=== PATIENT | male | born 1965 | race Two or more races ===

== ENCOUNTER 2021-07-06 14:17 | Inpatient (IN) | payer MEDICAID ==
[2021-07-06] VITALS (7 sets, daily range): BP systolic 92–118; BP diastolic 54–72
[~2021-07-06] VITALS: Ht 167.6 cm; Wt 73.9 kg
[2021-07-06] MEDS ORDERED: PAIN MEDICATION (14:28)
[2021-07-06] MEDS ORDERED: OCTREOTIDE ACETATE 50 MCG/1 ML ML IV STA (14:30)
[2021-07-06] MEDS ORDERED: ONDANSETRON 4 MG/2 ML VIAL IV ONE (14:30)
[2021-07-06] MEDS ORDERED: IV NORMAL SALINE 1000 ML BAG IV ONE (14:30)
[2021-07-06] MEDS: OCTREOTIDE ACETATE DRIP 500 MCG in IV NORMAL SALINE 99 ML IV STA ×2 (14:30→14:53)
[2021-07-06] MEDS ORDERED: PANTOPRAZOLE SODIUM IV 80 MG in IV DEXTROSE 5% 100 ML IV STA (14:30)
[2021-07-06] MEDS ORDERED: PANTOPRAZOLE SODIUM 40 MG VIAL ONE (14:51)
[2021-07-06] MEDS ORDERED: ONDANSETRON 4 MG/2 ML VIAL ONE (14:51)
[2021-07-06] MEDS ORDERED: OCTREOTIDE ACETATE 500 MCG/1 ML VIAL ONE (14:52)
[2021-07-06 15:03] LABS: MEAN CORPUSCULAR HEMOGLOBIN 20.3 uug (23.8-33.4); MEAN CORPUSCULAR VOLUME 69.6 fL (73.0-96.2); PLATELET COUNT (AUTO) 60 K/uL (152-348)
--- NOTE | 2021-07-06 15:10 | NUR ---
JOSE MOROCHO TALKING TO DR. MCCOY FOR GI CONSULT.
[2021-07-06 15:19] LABS: HEMATOCRIT 14.6 % (36.7-47.1)
[2021-07-06 15:21] LABS: CREATININE 2.5 mg/dL (0.6-1.3); POTASSIUM 4.2 mmol/L (3.5-5.1)
[2021-07-06 15:25] LABS: BILIRUBIN,DIRECT 0.3 mg/dL (0.0-0.2); BILIRUBIN,TOTAL 1.5 mg/dL (0.2-1.0); TOTAL PROTEIN, SERUM 4.5 g/dL (6.4-8.2)
--- NOTE | 2021-07-06 15:30 | NUR ---
blood transfusion started.
[2021-07-06 16:15] LABS: BAND % (MANUAL) 1 % (0-10); LYMPHOCYTES % (MANUAL) 13 % (20-40); MONOCYTES % (MANUAL) 6 % (2-10); NEUTROPHILS % (MANUAL) 80 % (42-75)
[2021-07-06] MEDS ORDERED: VANCOMYCIN IV 1,000 MG in IV DEXTROSE 5% 250 ML IV ONE (16:15)
--- NOTE | 2021-07-06 16:15 | NUR ---
DR. GALINDO ADMITED THE PT. NO CCU BED AVAILABLE AT THIS TIME.
[2021-07-06] MEDS ORDERED: VANCOMYCIN IV 200 ML ONE (16:33)
[2021-07-06] MEDS ORDERED: MAGNESIUM HYDROXIDE 30 ML LIQUID UDC PO PRN (17:30)
[2021-07-06] MEDS ORDERED: IV NS 1000 ML 1,000 ML IV SCH (17:30)
[2021-07-06] MEDS ORDERED: ONDANSETRON 4 MG/2 ML VIAL IV PRN (17:30)
[2021-07-06] MEDS ORDERED: Z GUARD REMEDY PASTE 57 GM TUBE TOP PRN (17:30)
--- NOTE | 2021-07-06 17:40 | NUR ---
first unit of blood completed.
--- NOTE | 2021-07-06 17:41 | NUR ---
second unit of blood started
[2021-07-06] MEDS ORDERED: OCTREOTIDE ACETATE DRIP 500 MCG in IV NORMAL SALINE 99 ML IV PRN (17:45)
--- NOTE | 2021-07-06 18:50 | NUR ---
second unit of blood completed. pt tolerated.
--- NOTE | 2021-07-06 19:14 | NUR ---
pt remained calm the whole er stay. pt lethargy improved after the blood transfusions, pt says feels better.
--- NOTE | 2021-07-06 19:30 | NUR ---
Pt. admitted to ccu room 3 , under care of Dx: GI bleed Belongs List completed
--- NOTE | 2021-07-06 19:45 | NUR ---
RECEIVED PATIENT FROM ER DX: GI BLEED PATIENT AAOX4/MAEX4,ABLE TO WALK FROM THE GURNEY TO THE BED . NO RESPIRATORY DISTRESS NOTED ON ROOM AIR . BP 92/58 HR 84/RR22/SATURATION 99 TO 100% NO ACTIVE BLEEDING NOTED . DENIES PAIN WHEN ASKED EQUATORIAL GUINEAN -ABLE TO UNDERSTAND AND SPEAKS ALBANIAN ORIENTED WITH CCU EQUIPMENT ,MONITOR AND CALL BENITEZ .
[2021-07-06] MEDS: IV NS 1000 ML 1,000 ML IV PRN (20:10)
[2021-07-06] MEDS: PANTOPRAZOLE SODIUM 40 MG VIAL IV SCH (20:11)
--- NOTE | 2021-07-06 20:30 | NUR ---
INSERTED ANOTHER HEPLOCK NO .18 TO LEFT AC ,DONE ASEPTICALLY .
--- NOTE | 2021-07-06 20:57 | NUR ---
STARTED 1 UNIT OF FFP ,V/S DONE AND CONSENT VERIFIED .
--- NOTE | 2021-07-06 21:03 | NUR ---
PATIENT VERBALIZED HIS NAUSEOUS GIVEN THE EMESES BAG AND GIVEN THE PRN ZOFRAN.
[2021-07-06] MEDS: OCTREOTIDE ACETATE DRIP 500 MCG in IV NORMAL SALINE 99 ML IV PRN (22:09)
--- NOTE | 2021-07-06 22:21 | NUR ---
COMPETED FFPS NO REACTION NOTED . PATIENT TOLERATED BLOOD .
--- NOTE | 2021-07-06 22:34 | NUR ---
PATIENT ASKED FOR THE BED BYRD AND URINAL ,PROVIDED . PATIENT VOIDED 150 ML OF YELLOWISH URINE AND HAD BM MODERATE AMT OF SOFT RED IN COLOR STOOL ABOUT 100 ML.CHANGED SOILED LINENS AND GOWN .
[2021-07-06 23:54] LABS: MEAN CORPUSCULAR VOLUME 72.7 fL (73.0-96.2)
[2021-07-07] VITALS (34 sets, daily range): BP systolic 91–137; BP diastolic 47–69
[2021-07-07 00:08] LABS: HEMATOCRIT 17.8 % (36.7-47.1)
[2021-07-07 00:09] LABS: PLATELET COUNT (AUTO) 37 K/uL (152-348)
--- NOTE | 2021-07-07 00:20 | NUR ---
CALLED ABNORMAL LABS TO [facility] SPOKED WITH JASMEET UGALDE - WITH ORDER TO GIVE 2 UNITS PRBC ,1 FFPS,1 PLATELETS .
--- NOTE | 2021-07-07 01:09 | NUR ---
STARTED 1 UNIT FO PRBC . FOLLOW BLOOD TRANSFUSION PROTOCOL .
[2021-07-07] MEDS: ACETAMINOPHEN 325 MG TABLET PO PRN ×2 (01:17→20:33)
--- NOTE | 2021-07-07 01:24 | NUR ---
GIVEN TYLENOL WITH SIPS OF WATER PATIENT COMPLAINED OF LEFT SHOULDER PAIN 8.
--- NOTE | 2021-07-07 01:30 | NUR ---
SCDS TO BILATERAL LOWER EXTREMITIES APPLIED .
--- NOTE | 2021-07-07 04:20 | NUR ---
TOLERATED PRBC COMPLETED NO BLOOD TRANSFUSION REACTION.
--- NOTE | 2021-07-07 04:36 | NUR ---
STARTED PLATELETS ,V/S WNL CONTINUE TO MONITOR V/S AND OBSERVED FOR BLOOD TRANSFUSION REACTION .
--- NOTE | 2021-07-07 05:47 | NUR ---
COMPLETED PLATELETS PATIENT TOLERATED BLOOD NO REACTION RR 16 TO 20 ROOM AIR SATURATION 98 % HR 66 BP 95/53.
--- NOTE | 2021-07-07 06:25 | NUR ---
PRBC STARTED STARTED V/S WNL CONTINUE TO MONITOR BLOOD TRANSFUSION REACTION .
[2021-07-07] MEDS ORDERED: CALCIUM GLUCONATE IV 2 GM in IV NORMAL SALINE 100 ML IV ONE (09:00)
[2021-07-07 09:07] LABS: *BILIRUBIN,URIN NEGATIVE (NEGATIVE); *BLOOD, URINE NEGATIVE (NEGATIVE); *CLARITY,URINE CLEAR (CLEAR); *COLOR,URINE YELLOW (YELLOW); *KETONES,URINE NEGATIVE (NEGATIVE); *UROBILINOGEN,URINE 0.2 E.U./dl (NORMAL); LEUKOCYTE ESTERASE ,URINE NEGATIVE (NEGATIVE); NITRITE, URINE NEGATIVE (NEGATIVE); UGLUCOSE NEGATIVE (NEGATIVE)
[2021-07-07 09:33] LABS: HEMATOCRIT 23.3 % (36.7-47.1); MEAN CORPUSCULAR HEMOGLOBIN 24.4 uug (23.8-33.4); MEAN CORPUSCULAR VOLUME 77.6 fL (73.0-96.2)
[2021-07-07 09:42] LABS: MAGNESIUM 2.1 mg/dL (1.8-2.4); PHOSPHOROUS 4.3 mg/dL (2.5-4.9); POTASSIUM 4.6 mmol/L (3.5-5.1)
[2021-07-07] MEDS: PANTOPRAZOLE SODIUM 40 MG VIAL IV SCH ×2 (10:02→20:23)
[2021-07-07] MEDS ORDERED: PANTOPRAZOLE SODIUM 40 MG VIAL ONE (10:08)
[2021-07-07 10:16] LABS: PLATELET COUNT (AUTO) 36 K/uL (152-348)
[2021-07-07] MEDS: OCTREOTIDE ACETATE DRIP 500 MCG in IV NORMAL SALINE 99 ML IV PRN ×2 (10:29→20:02)
--- NOTE | 2021-07-07 11:15 | NUR ---
Contacted Dr. Marks about patients H&H results. One unit of PRBC and Platelets ordered for patient.
[2021-07-07 11:16] LABS: EOSINOPHILS % (MANUAL) 1 % (0-8); LYMPHOCYTES % (MANUAL) 28 % (20-40); MONOCYTES % (MANUAL) 5 % (2-10); NEUTROPHILS % (MANUAL) 66 % (42-75)
--- NOTE | 2021-07-07 16:30 | NUR ---
Patient taken to Surgery. Consent signed by Patient.
[2021-07-07] MEDS ORDERED: EPINEPHRINE 1 MG/1 ML AMP ONE (17:10)
[2021-07-07] MEDS ORDERED: EPINEPHRINE 1:10,000 1 MG/10 ML DISP.SYRIN ONE (17:11)
--- NOTE | 2021-07-07 18:22 | NUR ---
Contacted Dr. Marks about patient status. Dr. Fontenot's procedure report given and notified him that Dr. Fontenot didn't have an issue with patient being ICU or [facility]. Orders received to down grade patient from ICU to [facility] by Dr. Marks.
--- NOTE | 2021-07-07 18:40 | NUR ---
Received patient from Surgery via hospital bed accompanied by 2 staff members, report received from CAROLYN Knox PACU. Patient is awake, A/Ox4, able to make needs known, denies pain at this time, on RA. IV of LFA with ongoing Sandostatin 50mcg/hr, LAC with ongoing NS @ 100mls/hr. No erythema, bleeding or infiltration noted. VS stable T 97.8, RR 20, HR 60, BP 122/56. Continent. Bed on lowest position, brakes on, siderails x2. Call light within reach. Will continue to monitor closely.
[2021-07-07 20:12] LABS: HEMATOCRIT 26.3 % (36.7-47.1); MEAN CORPUSCULAR HEMOGLOBIN 25.3 uug (23.8-33.4); MEAN CORPUSCULAR VOLUME 79.4 fL (73.0-96.2)
[2021-07-07 20:15] LABS: PLATELET COUNT (AUTO) 32 K/uL (152-348)
--- NOTE | 2021-07-07 20:19 | NUR ---
spoke to corey from the lab , blood bank tech is available at 22: 00 to release the blood
[2021-07-07] MEDS: CEFTRIAXONE 1 G in IV DEXTROSE 5% 50 ML IV SCH (20:23)
[2021-07-07] MEDS: IV NS 1000 ML 1,000 ML IV PRN (20:27)
--- NOTE | 2021-07-07 22:00 | NUR ---
blood bank is called , is still thawing
[2021-07-07 22:14] LABS: NEUTROPHILS % (MANUAL) 0 % (42-75)
[2021-07-07 23:11] LABS: HEMATOCRIT 23.8 % (36.7-47.1); MEAN CORPUSCULAR VOLUME 78.1 fL (73.0-96.2)
[2021-07-07 23:16] LABS: PLATELET COUNT (AUTO) 31 K/uL (152-348)
--- NOTE | 2021-07-07 23:46 | NUR ---
1 "u of platelet started, VSS. Will continue to monitor closely.
[2021-07-08] VITALS (12 sets, daily range): BP systolic 116–143; BP diastolic 55–69
--- NOTE | 2021-07-08 02:04 | NUR ---
Transfusion completed. No signs of allergic reaction. VSS.
--- NOTE | 2021-07-08 03:00 | NUR ---
Resting comfortably. No significant change of condition noted. Will continue to monitor.
--- NOTE | 2021-07-08 06:30 | NUR ---
patient is awake , oriented , , on room air , on sandostatin at 50 mcg , ns 100 ml , continent of urine , cotinent of bowel , tarry black stool , no fever
[2021-07-08] MEDS: IV NS 1000 ML 1,000 ML IV PRN ×2 (06:35→18:22)
[2021-07-08] MEDS: OCTREOTIDE ACETATE DRIP 500 MCG in IV NORMAL SALINE 99 ML IV PRN ×2 (07:07→18:22)
[2021-07-08 07:31] LABS: HEMATOCRIT 24.3 % (36.7-47.1); MEAN CORPUSCULAR HEMOGLOBIN 25.1 uug (23.8-33.4)
[2021-07-08 07:45] LABS: CREATININE 1.8 mg/dL (0.6-1.3); POTASSIUM 3.8 mmol/L (3.5-5.1)
[2021-07-08 07:51] LABS: BILIRUBIN,TOTAL 3.1 mg/dL (0.2-1.0); TOTAL PROTEIN, SERUM 4.8 g/dL (6.4-8.2)
[2021-07-08 08:00] LABS: PLATELET COUNT (AUTO) 39 K/uL (152-348)
[2021-07-08] MEDS: PANTOPRAZOLE SODIUM 40 MG VIAL IV SCH ×2 (08:48→20:24)
[2021-07-08 09:41] LABS: EOSINOPHILS % (MANUAL) 3 % (0-8); LYMPHOCYTES % (MANUAL) 29 % (20-40); MONOCYTES % (MANUAL) 10 % (2-10); MYELOCYTES % 1 % (0-0); NEUTROPHILS % (MANUAL) 57 % (42-75)
[2021-07-08 09:50] LABS: HEMATOCRIT 24.1 % (36.7-47.1); MEAN CORPUSCULAR HEMOGLOBIN 25.1 uug (23.8-33.4)
[2021-07-08 10:34] LABS: PLATELET COUNT (AUTO) 34 K/uL (152-348)
--- NOTE | 2021-07-08 11:10 | NUR ---
Reported critical results of platelets to Dr. Marks. No new orders at this time. Will wait for follow up labs.
[2021-07-08 11:57] LABS: *BILIRUBIN,URIN NEGATIVE (NEGATIVE); *BLOOD, URINE NEGATIVE (NEGATIVE); *CLARITY,URINE CLEAR (CLEAR); *COLOR,URINE YELLOW (YELLOW); *KETONES,URINE NEGATIVE (NEGATIVE); *UROBILINOGEN,URINE 0.2 E.U./dl (NORMAL); LEUKOCYTE ESTERASE ,URINE NEGATIVE (NEGATIVE); NITRITE, URINE NEGATIVE (NEGATIVE); PH,URINE 5.5 (5.0-8.0); UGLUCOSE TRACE (NEGATIVE)
[2021-07-08 12:07] LABS: *CREATININE,URINE 84.9 mg/dL (30-125); *URINE TOTAL PROTEIN RANDOM 16.8 mg/dL (<150/24HR)
[2021-07-08 12:13] LABS: BACTERIA,URINE NONE SEEN /HPF (NONE SEEN); SQUAMOUS EPITHELIAL CELL,UR NONE SEEN /HPF (NONE SEEN)
[2021-07-08 12:14] LABS: RBC,URINE NONE SEEN /HPF (0-3); WBC,URINE NONE SEEN /HPF (0-3)
--- NOTE | 2021-07-08 19:30 | NUR ---
ROUNDS MADE PATIENT IN BED AAOX4/MAEX4,NO RESPIRATORY DISTRESS IVF IN PROGRESS PATIENT ON SANDOSTATIN DRIP AND NORMAL SALINE DRIP INFUSING VIA THE LEFT AC NO 18.CALL LIGHT PLACED WITH IN REACH ADVISED TO CALL FOR HELP URINAL PLACED WITH IN REACH .
--- NOTE | 2021-07-08 20:24 | NUR ---
PROTONIX 40 IVP SEE EMAR .PATIENT IN BED AAOX4/MAEX4 .NO RESPIRATORY DISTRESS NOTED ON ROOM AIR . NO ACTIVE BLEEDING .
[2021-07-08] MEDS: CEFTRIAXONE 1 G in IV DEXTROSE 5% 50 ML IV SCH (20:25)
--- NOTE | 2021-07-08 20:25 | NUR ---
ROCEPHIN ANTIBIOTICS IVPB SEE MAR .
[2021-07-09 00:11] VITALS: BP 154/71
[2021-07-09] MEDS: OCTREOTIDE ACETATE DRIP 500 MCG in IV NORMAL SALINE 99 ML IV PRN (04:13)
[2021-07-09] MEDS: IV NS 1000 ML 1,000 ML IV PRN (04:19)
[2021-07-09 04:33] VITALS: BP 145/66
[2021-07-09 07:46] VITALS: BP 132/63
[2021-07-09 08:27] LABS: HEMATOCRIT 23.5 % (36.7-47.1); MEAN CORPUSCULAR HEMOGLOBIN 25.1 uug (23.8-33.4); MEAN CORPUSCULAR VOLUME 77.5 fL (73.0-96.2)
[2021-07-09 08:49] LABS: BILIRUBIN,TOTAL 2.3 mg/dL (0.2-1.0); CREATININE 1.6 mg/dL (0.6-1.3); MAGNESIUM 1.9 mg/dL (1.8-2.4); PHOSPHOROUS 3.4 mg/dL (2.5-4.9); POTASSIUM 3.5 mmol/L (3.5-5.1); TOTAL PROTEIN, SERUM 4.8 g/dL (6.4-8.2)
[2021-07-09] MEDS: PANTOPRAZOLE SODIUM 40 MG VIAL IV SCH (08:57)
[2021-07-09 09:13] LABS: PLATELET COUNT (AUTO) 34 K/uL (152-348)
[2021-07-09 10:56] LABS: EOSINOPHILS % (MANUAL) 8 % (0-8); LYMPHOCYTES % (MANUAL) 43 % (20-40); MONOCYTES % (MANUAL) 2 % (2-10); NEUTROPHILS % (MANUAL) 47 % (42-75)
[2021-07-09] MEDS ORDERED: PANT40TA2 PO (12:42)
[2021-07-09] MEDS ORDERED: PROP10TA10 PO (12:42)
[2021-07-09] MEDS ORDERED: INFLUENZA VACCINE 2021-2022 0.5 ML DISP.SYRIN IM ONE (13:30)
[2021-07-09 13:49] VITALS: BP 122/71
[2021-07-09] MEDS ORDERED: LIDOCAINE-MPF 2% 5 ML VIAL IJ ONE (14:49)
[2021-07-09] MEDS ORDERED: ETOMIDATE 20 MG/10 ML VIAL IV ONE (14:49)
--- NOTE | 2021-07-09 14:50 | NUR ---
Patient was given discharge instructions, IV's removed, ID bands cut off and patient discharged facility with . Safety instructions given to patient and bleeding precautions.
[2021-07-10 11:06] LABS: A/G RATIO 1.2 (0.7-1.7); ALBUMIN 2.4 g/dL (2.9-4.4); ALPHA-1-GLOBULIN 0.2 g/dL (0.0-0.4); ALPHA-2-GLOBULIN 0.3 g/dL (0.4-1.0); BETA GLOBULIN 0.7 g/dL (0.7-1.3); GAMMA GLOBULIN 0.7 g/dL (0.4-1.8); M-SPIKE Not Observed g/dL (Not Observed)
== END 2021-07-09 14:50 | disposition home or self-care (01) | DRG 280 ==
LOC: ER 14:17 → CCU 19:10 → TELE-TD3 07-07 18:49 → TELE3 07-08 20:41
PROVIDERS: ADMIT Internal Medicine; ATTEND Internal Medicine
PROC: 30233K1 Transfusion of Nonautologous Frozen Plasma into Peripheral Vein, Percutaneous Approach (ICD-10-PCS; principal; 2021-07-06)
PROC: 30233N1 Transfusion of Nonautologous Red Blood Cells into Peripheral Vein, Percutaneous Approach (ICD-10-PCS; 2021-07-06)
PROC: 06L38CZ Occlusion of Esophageal Vein with Extraluminal Device, Via Natural or Artificial Opening Endoscopic (ICD-10-PCS; 2021-07-07)
PROC: 30233R1 Transfusion of Nonautologous Platelets into Peripheral Vein, Percutaneous Approach (ICD-10-PCS; 2021-07-07)
DX: K70.9 Alcoholic liver disease, unspecified (principal); N17.0 Acute kidney failure with tubular necrosis; I85.11 Secondary esophageal varices with bleeding; E43 Unspecified severe protein-calorie malnutrition; E87.0 Hyperosmolality and hypernatremia; K76.6 Portal hypertension; E88.09 Other disorders of plasma-protein metabolism, not elsewhere classified; D62 Acute posthemorrhagic anemia; E86.1 Hypovolemia; K31.89 Other diseases of stomach and duodenum; Z20.822 Contact with and (suspected) exposure to COVID-19; Z68.26 Body mass index [BMI] 26.0-26.9, adult; Z87.11 Personal history of peptic ulcer disease
CPT/HCPCS: 36415; 70030-TC; 71045; 76770; 83605; 83735; 83970; 84100; 84155; 84156; 84165; 84300; 85014; 85025; 85730; 86850; 86900; 86901; 86920; 87040; 87086; 90686; 93005; A4217; A4663; C9113; G0378; J0171; J0610; J0696; J2354; J2405; J3370; J3490; J7030; J7040; J7050; J7060; P9016; P9035; P9059

== ENCOUNTER 2021-08-23 13:51 | Inpatient (IN) | payer MEDICAID ==
[~2021-08-23] VITALS: Ht 165.1 cm; Wt 64.9 kg
[~2021-08-23 13:51] MED LIST: PAIN MEDICATION; PANT40TA2 PO; PROP10TA10 PO
[2021-08-23] MEDS ORDERED: IV NORMAL SALINE 1000 ML BAG IV ONE (14:00)
[2021-08-23] MEDS ORDERED: OCTREOTIDE ACETATE INJ 500 MCG in IV DEXTROSE 5% 100 ML IV ONE (14:00)
[2021-08-23] MEDS ORDERED: OCTREOTIDE ACETATE 50 MCG/1 ML ML IV ONE (14:00)
[2021-08-23] MEDS ORDERED: PANTOPRAZOLE SODIUM IV 80 MG in IV DEXTROSE 5% 100 ML IV ONE ×2 (14:00→16:30)
--- NOTE | 2021-08-23 14:02 | NUR ---
PT DOES NOT REMEMBER HIS HOME MEDICATION NAMES AND DOSAGES.
[2021-08-23] MEDS ORDERED: CEFTRIAXONE 1 G in IV DEXTROSE 5% 50 ML IV ONE (14:15)
[2021-08-23 14:56] LABS: MEAN CORPUSCULAR HEMOGLOBIN 22.1 uug (23.8-33.4); MEAN CORPUSCULAR VOLUME 75.8 fL (73.0-96.2); PLATELET COUNT (AUTO) 65 K/uL (152-348)
[2021-08-23] MEDS ORDERED: CEFTRIAXONE /D5W 50ML IVPB **ER PYXIS IV ONE (14:58)
[2021-08-23 15:02] LABS: HEMATOCRIT 13.4 % (36.7-47.1)
[2021-08-23 15:05] LABS: POTASSIUM 5.7 mmol/L (3.5-5.1)
--- NOTE | 2021-08-23 15:15 | NUR ---
Consent signed by patient agreeing to administration of blood. Patient or responsible republican informed of potential complications associated with blood transfusion. Information on unit of blood checked against patient wristband at bedside by two nurses. All information matches. Patient made aware of need to notify nurse at once if begins to experience itching, shortness of breath, flushing, feeling of impending doom, or other symptoms not previously present.
[2021-08-23 15:20] LABS: BILIRUBIN,DIRECT 0.3 mg/dL (0.0-0.2); BILIRUBIN,TOTAL 1.4 mg/dL (0.2-1.0); TOTAL PROTEIN, SERUM 5.1 g/dL (6.4-8.2)
[2021-08-23 15:36] LABS: LYMPHOCYTES % (MANUAL) 21 % (20-40); MONOCYTES % (MANUAL) 5 % (2-10); NEUTROPHILS % (MANUAL) 74 % (42-75)
[2021-08-23] MEDS ORDERED: CALCIUM GLUCONATE IV 2 GM in IV DEXTROSE 5% 250 ML IV ONE (16:00)
[2021-08-23] MEDS ORDERED: CALCIUM GLUCONATE 1 GM/10 ML VIAL IV ONE (16:14)
[2021-08-23] MEDS ORDERED: ACETAMINOPHEN 650 MG SUPP.RECT RC PRN (16:30)
[2021-08-23] MEDS ORDERED: CEFTRIAXONE 1 G in IV DEXTROSE 5% 50 ML IV SCH (16:30)
[2021-08-23] MEDS ORDERED: PANTOPRAZOLE SODIUM IV 80 MG in IV DEXTROSE 5% 500 ML IV SCH (16:30)
[2021-08-23] MEDS ORDERED: ONDANSETRON 4 MG/2 ML VIAL IV PRN (16:30)
[2021-08-23] MEDS ORDERED: Z GUARD REMEDY PASTE 57 GM TUBE TOP PRN (16:30)
[2021-08-23] MEDS ORDERED: MORPHINE SULFATE 2 MG/1 ML DISP.SYRIN IV PRN (16:30)
--- NOTE | 2021-08-23 16:48 | NUR ---
* IV Rocephine given@1451 while in ER.
--- NOTE | 2021-08-23 16:49 | NUR ---
* IV Protonix 80mg given@1504 while in ER.
[2021-08-23] MEDS ORDERED: PANTOPRAZOLE SODIUM 40 MG VIAL ONE (17:01)
--- NOTE | 2021-08-23 17:05 | NUR ---
1st unit of uncrossmatched PRBC infusing well, no adverse rxn seen seen. Patient is resting comfortably on gurney with eyes closed, pending available CCU/ICU bed & nurse at this time.
--- NOTE | 2021-08-23 17:10 | NUR ---
1st uncrossmatched blood done, no adverse rxn seen.
[2021-08-23] MEDS ORDERED: SODIUM POLYSTYRENE SULFONATE 15 G/60 ML LIQUID UDC PO ONE (18:00)
[2021-08-23] MEDS ORDERED: SODIUM POLYSTYRENE SULFONATE 15 G/60 ML LIQUID UDC ONE (18:12)
--- NOTE | 2021-08-23 19:10 | NUR ---
RECEIVED REPORT FROM CAROLYN JACKSON. PT NOTED TO BE IN GURNEY, IN NO DISTRESS. DENIES ANY PAIN/DISCOMFORT. NO SOB OR LABORED BREATHING. PT WATCHING TV.
--- NOTE | 2021-08-23 19:16 | NUR ---
Patient is still for ICU/CCU, pending available nurse & bed, 2nd unit of PRBC infusing. IV drips: Octreotide@50mcg/hour and Protonix@8mg per hour.
--- NOTE | 2021-08-23 21:00 | NUR ---
PT IN [facility], COMFORTABLE, NO SOB OR LABORED BREATHING.
[2021-08-23] MEDS ORDERED: ACETAMINOPHEN 650 MG SUPP.RECT RC ONE (21:09)
--- NOTE | 2021-08-23 22:42 | NUR ---
GAVE REPORT TO DENY BRAUN.
--- NOTE | 2021-08-23 23:00 | NUR ---
ASSISTED PT TO USE URINAL.
--- NOTE | 2021-08-23 23:05 | NUR ---
Pt. admitted to CCU BED 2 , under care of CP BLEACHER OPERATOR- SANDRA KOROMA DX: GI BLEED Belongs List completed
[2021-08-23 23:25] VITALS: BP 104/55
--- NOTE | 2021-08-23 23:25 | NUR ---
RECEIVED FROM ER dX: GIB,SEVERE ANEMIA ,PATIENT AAOX4/MAEX4.ON ROOM AIR NO RESPIRATORY DISTRESS NOTED BREATHING EVEN AND UNLABORED, SR ON THE HEART MONITOR.PATIENT ON PROTONIX DRIP INFUSING .SANDOSTATIN DRIP OFF . PER RESEARCH NEUROPSYCHOLOGIST COMPLETED THE 3 UNITS OF PRBC BUT STILL WITH FFPS 1 UNIT TO GIVEN . NO ACTIVE BLEEDING NOTED ON SHIFT .
[2021-08-24] VITALS (28 sets, daily range): BP systolic 87–154; BP diastolic 52–96
--- NOTE | 2021-08-24 00:10 | NUR ---
started FFPS 1 UNIT CHECKED V/S WNL . MALLORIE NUE TO MONITOR V/S AND BLOOD TRANSFUSION REACTION .
--- NOTE | 2021-08-24 01:00 | NUR ---
urinated using the urinal with 250 ml of yellowish urine .
[2021-08-24] MEDS: IV D5 1/2 NS 1000 ML 1,000 ML IV PRN ×2 (01:19→21:52)
--- NOTE | 2021-08-24 01:23 | NUR ---
COMPETED FFPS 1 UNIT NO BLOOD TRANSFUSION REACTION .
--- NOTE | 2021-08-24 01:30 | NUR ---
CALLED TO [facility] H/H RESULT SPOKED WITH Beatris SANTOS/H (5.7/17.4)LOW WITH ORDER TO GIVE 2 UNITS PRBC.
[2021-08-24 01:48] LABS: HEMATOCRIT 17.4 % (36.7-47.1)
[2021-08-24] MEDS: OCTREOTIDE ACETATE DRIP 500 MCG in IV NORMAL SALINE 99 ML IV PRN ×2 (03:05→14:28)
--- NOTE | 2021-08-24 03:36 | NUR ---
PATIENT CALLED FOR BEDPAN HAD A BM SOFT DARK BROWN IN COLOR . CHANGED SOILED LINENS .
--- NOTE | 2021-08-24 03:40 | NUR ---
VOIDED USING THE URINAL WITH YELLOWISH URINE . 350 ML.
--- NOTE | 2021-08-24 03:40 | NUR ---
STOOL ABOUT 350 ML IN AMT , NO NAUSEA NO VOMITING NOTED .
--- NOTE | 2021-08-24 06:55 | NUR ---
visited by DR: OZZY spoked with patient .
[2021-08-24 09:22] LABS: HEMATOCRIT 21.2 % (36.7-47.1); MEAN CORPUSCULAR HEMOGLOBIN 26.1 uug (23.8-33.4); MEAN CORPUSCULAR VOLUME 78.2 fL (73.0-96.2)
[2021-08-24] MEDS: PANTOPRAZOLE SODIUM 40 MG VIAL IV SCH ×2 (09:24→21:37)
[2021-08-24 09:28] LABS: CREATININE 2.1 mg/dL (0.6-1.3); PHOSPHOROUS 3.3 mg/dL (2.5-4.9); POTASSIUM 4.1 mmol/L (3.5-5.1)
[2021-08-24 09:30] LABS: PLATELET COUNT (AUTO) 28 K/uL (152-348)
[2021-08-24 09:41] LABS: BILIRUBIN,DIRECT 0.4 mg/dL (0.0-0.2); BILIRUBIN,TOTAL 2.1 mg/dL (0.2-1.0); TOTAL PROTEIN, SERUM 4.6 g/dL (6.4-8.2)
[2021-08-24 09:43] LABS: THYROID STIMULATING HORMONE 0.205 mIU/mL (0.358-3.740)
[2021-08-24] MEDS ORDERED: EPINEPHRINE 1 MG/1 ML AMP ONE (11:02)
[2021-08-24] MEDS ORDERED: SUCCINYLCHOLINE CHLORIDE 200 MG/10 ML VIAL ONE (13:10)
[2021-08-24] MEDS ORDERED: PROPOFOL 200 MG/20 ML BOTTLE ONE (13:10)
[2021-08-24] MEDS ORDERED: ETOMIDATE 20 MG/10 ML VIAL ONE (13:10)
[2021-08-24] MEDS ORDERED: LIDOCAINE-MPF 2% 5 ML VIAL ONE (13:10)
[2021-08-24] MEDS ORDERED: PIPERACILLIN/TAZO 2.25 G in IV DEXTROSE 5% 50 ML IV ONE (13:30)
[2021-08-24] MEDS ORDERED: CEFTRIAXONE 1 G in IV DEXTROSE 5% 50 ML IV SCH (15:00)
[2021-08-24] MEDS ORDERED: ACETAMINOPHEN 325 MG TABLET PO ONE (16:00)
[2021-08-24 16:31] LABS: HEMATOCRIT 24.7 % (36.7-47.1); MEAN CORPUSCULAR HEMOGLOBIN 26.5 uug (23.8-33.4); MEAN CORPUSCULAR VOLUME 78.6 fL (73.0-96.2)
[2021-08-24 16:34] LABS: PLATELET COUNT (AUTO) 26 K/uL (152-348)
[2021-08-24 19:07] LABS: NEUTROPHILS % (MANUAL) 0 % (42-75)
--- NOTE | 2021-08-24 19:45 | NUR ---
rounds made patient in bed watching tv. no respiratory distress noted breathing even and unlabored on room air . SR on the heart monitor . no active bleeding noted . no nausea no vomiting . Sandostatin drip in progress via the left arm h/l and maintenance ivf d2//2 ns at 50 ml/hr , urinal placed with in reach and advised to call for assistance . patient is tolerating clear liquids ,water at b/s with reach .
--- NOTE | 2021-08-24 21:30 | NUR ---
voiding using the urinal ,yellowish colored urine able to assist self .empty urinal prn .patient denies pain nor any discomfort . watching tv at this time .
[2021-08-24] MEDS: PIPERACILLIN SODIUM/TAZOBACTAM 3.375 G in IV DEXTROSE 5% 100 ML IV SCH (21:41)
--- NOTE | 2021-08-24 22:30 | NUR ---
called blood bank and spoked with faustina ,as per faustina still waiting for blood products from [facility].
[2021-08-25] VITALS (25 sets, daily range): BP systolic 136–165; BP diastolic 63–88
[2021-08-25] MEDS: OCTREOTIDE ACETATE DRIP 500 MCG in IV NORMAL SALINE 99 ML IV PRN ×3 (00:52→21:58)
--- NOTE | 2021-08-25 02:30 | NUR ---
patient in bed sleeping ,v/s wnl ,no respiratory distress breathing even and unlabored .
--- NOTE | 2021-08-25 03:30 | NUR ---
faustina from blood bank called saying the platelet is available.started 1 unit of platelets bar code unable to scan blood administration done manually with another RN.
[2021-08-25] MEDS: PIPERACILLIN SODIUM/TAZOBACTAM 3.375 G in IV DEXTROSE 5% 100 ML IV SCH ×2 (05:14→14:14)
[2021-08-25 05:26] LABS: HEMATOCRIT 23.9 % (36.7-47.1); MEAN CORPUSCULAR HEMOGLOBIN 26.5 uug (23.8-33.4); MEAN CORPUSCULAR VOLUME 78.6 fL (73.0-96.2)
[2021-08-25 05:32] LABS: PLATELET COUNT (AUTO) 42 K/uL (152-348)
[2021-08-25 06:03] LABS: BILIRUBIN,TOTAL 2.6 mg/dL (0.2-1.0); CREATININE 1.6 mg/dL (0.6-1.3); PHOSPHOROUS 4.3 mg/dL (2.5-4.9); POTASSIUM 3.7 mmol/L (3.5-5.1); TOTAL PROTEIN, SERUM 4.7 g/dL (6.4-8.2)
[2021-08-25 06:52] LABS: *RHEUMATOID FACTOR SCREEN NEGATIVE (NEGATIVE)
[2021-08-25] MEDS: PANTOPRAZOLE SODIUM 40 MG VIAL IV SCH ×2 (08:00→20:51)
[2021-08-25] MEDS ORDERED: SOD FERRIC GLUC COMPLX/SUCROSE 125 MG in IV NORMAL SALINE 100 ML IV SCH ×2 (14:00→14:32)
[2021-08-25] MEDS: SOD FERRIC GLUC COMPLX/SUCROSE 125 MG in IV NORMAL SALINE 100 ML IV SCH (16:36)
[2021-08-25] MEDS: CEFTRIAXONE 1 G in IV DEXTROSE 5% 50 ML IV SCH (18:05)
--- NOTE | 2021-08-25 19:30 | NUR ---
rounds made patient in bed aaox4/maex4, on room air no respiratory distress noted ,patient at bedside visiting him.
[2021-08-25] MEDS: hydrALAZINE HCL 20 MG/1 ML VIAL IV PRN (20:51)
--- NOTE | 2021-08-25 20:51 | NUR ---
patients BP 164/75 HR 62, GIVEN PRN BP MEDS -hydralazine 10 mg ivp . continue to monitor BP.
--- NOTE | 2021-08-25 20:51 | NUR ---
protonix ivp given ,no active bleeding noted and no nausea no vomiting .
--- NOTE | 2021-08-25 21:30 | NUR ---
voids using the urinal 350 ml ,yellowish urine empty urinal and gave back to patient .
--- NOTE | 2021-08-25 22:00 | NUR ---
bp 157/80 (104) will continue to monitor bp .
[2021-08-25] MEDS: IV D5 1/2 NS 1000 ML 1,000 ML IV PRN (23:26)
[2021-08-26] VITALS (11 sets, daily range): BP systolic 133–163; BP diastolic 57–94
--- NOTE | 2021-08-26 01:51 | NUR ---
sleeping in bed v/s improved BP 135/57 HR 73 ROOM AIR 98 RR 17.
[2021-08-26 05:10] LABS: HEMATOCRIT 25.7 % (36.7-47.1); MEAN CORPUSCULAR HEMOGLOBIN 26.3 uug (23.8-33.4)
[2021-08-26 05:33] LABS: BILIRUBIN,TOTAL 2.5 mg/dL (0.2-1.0); CREATININE 1.5 mg/dL (0.6-1.3); PHOSPHOROUS 3.6 mg/dL (2.5-4.9); POTASSIUM 3.5 mmol/L (3.5-5.1); TOTAL PROTEIN, SERUM 5.1 g/dL (6.4-8.2)
[2021-08-26 07:13] LABS: PLATELET COUNT (AUTO) 35 K/uL (152-348)
[2021-08-26] MEDS: PANTOPRAZOLE SODIUM 40 MG VIAL IV SCH ×2 (09:04→20:29)
[2021-08-26 09:06] LABS: *IMMUNOGLOBULIN G, SERUM 782 mg/dL (603-1613); IMMUNOGLOBULIN A, SERUM 254 mg/dL (90-386); IMMUNOGLOBULIN M, SERUM 52 mg/dL (20-172)
[2021-08-26] MEDS: OCTREOTIDE ACETATE DRIP 500 MCG in IV NORMAL SALINE 99 ML IV PRN (09:06)
[2021-08-26] MEDS: hydrALAZINE HCL 20 MG/1 ML VIAL IV PRN (11:18)
[2021-08-26] MEDS: SOD FERRIC GLUC COMPLX/SUCROSE 125 MG in IV NORMAL SALINE 100 ML IV SCH (16:42)
[2021-08-26] MEDS: CEFTRIAXONE 1 G in IV DEXTROSE 5% 50 ML IV SCH (17:52)
[2021-08-27 00:01] VITALS: BP 148/69
[2021-08-27 04:00] VITALS: BP 153/72
--- NOTE | 2021-08-27 06:00 | NUR ---
Red brown bloody stool; moderate amount.
[2021-08-27 08:00] VITALS: BP 148/68
--- NOTE | 2021-08-27 08:00 | NUR ---
instructed pt to notify nursing for any bleeding from stool. Pt verbalized understanding. Pt is in no acute distress. Pt denies any c/o pain.
[2021-08-27] MEDS: PANTOPRAZOLE SODIUM 40 MG VIAL IV SCH (08:48)
[2021-08-27 11:30] VITALS: BP 130/65
[2021-08-27 12:06] LABS: HEPATITIS B SURFACE AG Negative (Negative)
[2021-08-27] MEDS: SOD FERRIC GLUC COMPLX/SUCROSE 125 MG in IV NORMAL SALINE 100 ML IV SCH (15:01)
[2021-08-27 15:20] VITALS: BP 123/65
--- NOTE | 2021-08-27 16:00 | NUR ---
No bleeding noted. Pt is in no acute distress.
--- NOTE | 2021-08-27 17:00 | NUR ---
Discharge instructions given to patient. Educated pt on s/s of gi bleed re: Black stool or bright red stool and to go to ER for any emergency. Pt verbalized understanding. Instructed pt to see dr within 1 week and Emphasize importance of establishing medical care. configuration release manager gave pt resource for [facility]. PT is in no acute distress. IV taken out. Valuables signed. Soft diet list given to patient.
[2021-08-28 06:16] LABS: A/G RATIO 1.3 (0.7-1.7); ALBUMIN 2.5 g/dL (2.9-4.4); ALPHA-1-GLOBULIN 0.1 g/dL (0.0-0.4); ALPHA-2-GLOBULIN 0.4 g/dL (0.4-1.0); BETA GLOBULIN 0.8 g/dL (0.7-1.3); GAMMA GLOBULIN 0.7 g/dL (0.4-1.8); M-SPIKE Not Observed g/dL (Not Observed)
[2021-08-28] MEDS ORDERED: AMLODIPINE 5 MG TABLET PO SCH (09:00)
[2021-08-28 09:06] LABS: *ANTI-SCLERODERMA-70 AB <0.2 AI (0.0-0.9); *SJOGREN'S ANTI-SS-A <0.2 AI (0.0-0.9); *SJOGREN'S ANTI-SS-B <0.2 AI (0.0-0.9); *SMITH ANTIBODIES <0.2 AI (0.0-0.9); ANTI-DNA(DS) AB, QN <1 IU/mL (0-9)
== END 2021-08-27 17:00 | disposition home or self-care (01) | DRG 280 ==
LOC: ER 13:51 → TRANSITION 16:23 → CCU 22:43 → TELE3 08-27 07:03
PROVIDERS: ADMIT Nurse Practitioner Family; ATTEND Internal Medicine
PROC: 30233N1 Transfusion of Nonautologous Red Blood Cells into Peripheral Vein, Percutaneous Approach (ICD-10-PCS; principal; 2021-08-23)
PROC: 30233L1 Transfusion of Nonautologous Fresh Plasma into Peripheral Vein, Percutaneous Approach (ICD-10-PCS; 2021-08-24)
PROC: 0DJ08ZZ Inspection of Upper Intestinal Tract, Via Natural or Artificial Opening Endoscopic (ICD-10-PCS; 2021-08-24)
PROC: 30233R1 Transfusion of Nonautologous Platelets into Peripheral Vein, Percutaneous Approach (ICD-10-PCS; 2021-08-25)
DX: K70.30 Alcoholic cirrhosis of liver without ascites (principal); N17.0 Acute kidney failure with tubular necrosis; I85.11 Secondary esophageal varices with bleeding; E43 Unspecified severe protein-calorie malnutrition; D61.818 Other pancytopenia; K56.600 Partial intestinal obstruction, unspecified as to cause; I21.A1 Myocardial infarction type 2; D62 Acute posthemorrhagic anemia; A04.9 Bacterial intestinal infection, unspecified; K76.6 Portal hypertension; K31.89 Other diseases of stomach and duodenum; D68.9 Coagulation defect, unspecified; D69.59 Other secondary thrombocytopenia; E87.2 Acidosis; E87.5 Hyperkalemia; Z87.11 Personal history of peptic ulcer disease; Z90.49 Acquired absence of other specified parts of digestive tract; Z93.3 Colostomy status; E83.51 Hypocalcemia; Z20.822 Contact with and (suspected) exposure to COVID-19; E88.09 Other disorders of plasma-protein metabolism, not elsewhere classified; Z68.23 Body mass index [BMI] 23.0-23.9, adult; N18.9 Chronic kidney disease, unspecified; R16.1 Splenomegaly, not elsewhere classified
CPT/HCPCS: 36415; 70030-TC; 71045; 82378; 82747; 82784; 83550; 83605; 83690; 83735; 84100; 84155; 84165; 84443; 85014; 85018; 85025; 85610; 85730; 86038; 86334; 86430; 86706; 86803; 86850; 86900; 86901; 86920; 87040; 87340; 87806; 93005; A4217; A4663; C9113; G0378; J0171; J0330; J0360; J0610; J0696; J2354; J2543; J2916; J3490; J7030; J7040; J7050; J7060; P9016; P9035; P9059

== ENCOUNTER 2022-09-11 11:41 | Inpatient (IN) | payer MEDICAID, OTHER ==
[~2022-09-11] VITALS: Ht 170.2 cm; Wt 74.8 kg
--- NOTE | 2022-09-11 09:44 | NUR ---
Rechecked BP73/40, reported to Dr. Ramos with order to rechecked BP manually and obtained same results. Received order for NS 500ML bolus noted and carried out.
--- NOTE | 2022-09-11 11:50 | NUR ---
BIB family via w/c, pt to room 3, Pt states fever/chills since yesterday. Pt states he came in to be seen yesteray but left because the he waited a long time, see [id number].
[2022-09-11] MEDS ORDERED: VANCOMYCIN IV 1,000 MG in IV DEXTROSE 5% 250 ML IV ONE (12:15)
[2022-09-11] MEDS ORDERED: PIPERACILLIN SODIUM/TAZOBACTAM 3.375 G in IV DEXTROSE 5% 50 ML IV ONE (12:15)
[2022-09-11] MEDS ORDERED: IV LACTATED RINGERS SOLUTION 1,000 ML BAG IV ONE (12:15)
[2022-09-11] MEDS ORDERED: ACETAMINOPHEN ES 500 MG TABLET PO ONE (12:15)
[2022-09-11] MEDS ORDERED: VANCOMYCIN IV 200 ML ONE (12:40)
[2022-09-11] MEDS ORDERED: ACETAMINOPHEN ES 500 MG TABLET ONE (12:40)
[2022-09-11] MEDS ORDERED: PIPERACILLIN/TAZOBACTAM/D5W 50 ML IV ONE (12:40)
[2022-09-11 12:41] LABS: HEMATOCRIT 24.1 % (36.7-47.1); MEAN CORPUSCULAR HEMOGLOBIN 22.6 uug (23.8-33.4); MEAN CORPUSCULAR VOLUME 71.8 fL (73.0-96.2)
[2022-09-11 13:04] LABS: BILIRUBIN,DIRECT 0.7 mg/dL (0.0-0.2); BILIRUBIN,TOTAL 3.4 mg/dL (0.2-1.0); CREATININE 2.4 mg/dL (0.6-1.3); POTASSIUM 4.3 mmol/L (3.5-5.1); TOTAL PROTEIN, SERUM 5.4 g/dL (6.4-8.2)
--- NOTE | 2022-09-11 13:16 | NUR ---
Received lactic acid result of 3.6 from lab, Dr. Hernández notified.
[2022-09-11 13:19] LABS: *BILIRUBIN,URIN NEGATIVE (NEGATIVE); *BLOOD, URINE 3+ (NEGATIVE); *CLARITY,URINE CLEAR (CLEAR); *COLOR,URINE YELLOW (YELLOW); *KETONES,URINE NEGATIVE (NEGATIVE); *UROBILINOGEN,URINE 0.2 E.U./dl (NORMAL); LEUKOCYTE ESTERASE ,URINE NEGATIVE (NEGATIVE); NITRITE, URINE NEGATIVE (NEGATIVE); PH,URINE 5.5 (5.0-8.0); UGLUCOSE NEGATIVE (NEGATIVE)
--- NOTE | 2022-09-11 13:22 | NUR ---
Pt's BUN is 32 and Creatinine is 2.4, MD notified, approved CT with contrast.
[2022-09-11] MEDS ORDERED: SWABABLE VALVE TRANSFER SET EA MC ONE (13:31)
[2022-09-11] MEDS ORDERED: IV NORMAL SALINE 250 ML IV ONE (13:31)
[2022-09-11] MEDS ORDERED: IOHEXOL 300MG/ML 100 ML INFUS..BTL ONE (13:31)
[2022-09-11 13:33] LABS: PLATELET COUNT (AUTO) 17 K/uL (152-348)
--- NOTE | 2022-09-11 13:33 | NUR ---
Lab report; Plt=17, Hgb=7.6, MD notified.
--- NOTE | 2022-09-11 13:39 | NUR ---
PATIENT BUN IS 32 AND CREAT. IS 2.[address] ABD, PELVIS WITH CONTRAST BY DR. ART
[2022-09-11 14:06] LABS: BACTERIA,URINE FEW /HPF (NONE SEEN); SQUAMOUS EPITHELIAL CELL,UR MODERATE /HPF (NONE SEEN); WBC,URINE 0-3 /HPF (0-3)
[2022-09-11 15:02] LABS: BAND % (MANUAL) 4 % (0-10); LYMPHOCYTES % (MANUAL) 14 % (20-40)
[2022-09-11 15:03] LABS: MONOCYTES % (MANUAL) 2 % (2-10); NEUTROPHILS % (MANUAL) 80 % (42-75)
[2022-09-11] MEDS ORDERED: OCTREOTIDE ACETATE 50 MCG/1 ML ML IV ONE (15:30)
[2022-09-11] MEDS ORDERED: OCTREOTIDE ACETATE 50 MCG/1 ML ML ONE (15:45)
[2022-09-11] MEDS ORDERED: PANTOPRAZOLE SODIUM IV 80 MG in IV DEXTROSE 5% 100 ML IV ONE (16:00)
[2022-09-11] MEDS ORDERED: IV NORMAL SALINE 1000 ML BAG IV ONE ×2 (16:30→18:15)
--- NOTE | 2022-09-11 16:40 | NUR ---
IV Pantoprazole Sodium 80mg in D5W 100ml completed at 1635.
[2022-09-11] MEDS ORDERED: MIDODRINE HCL 5 MG TABLET ONE (18:07)
[2022-09-11] MEDS ORDERED: MIDODRINE HCL 5 MG TABLET PO SCH (18:15)
[2022-09-11] MEDS ORDERED: ONDANSETRON 4 MG/2 ML VIAL IV PRN (18:30)
[2022-09-11] MEDS ORDERED: MAGNESIUM HYDROXIDE 30 ML LIQUID UDC PO PRN (18:30)
[2022-09-11] MEDS ORDERED: REMEDY ESSENTIAL ZINC PASTE 113 GM TP PRN (18:30)
--- NOTE | 2022-09-11 18:39 | NUR ---
Pt will be admitted under the medical care of Dr. Ramos, level of care: med-surg, Rm 310. Called med-surg unit to give report x4. RN to receive the pt was busy x4. Per [facility], transfer the pt up to med-surg and give report at the unit.
--- NOTE | 2022-09-11 19:00 | NUR ---
Received patient from ER via gurney, awake alert and oriented x 4. In no acute distress. Sinus rhythm on tele, HR 60. IV access to right wrist intact and patent. Admitted with low BP 86/49, denies chest pain, no c/o dizziness. Routine admission care rendered, care plan initiated. Oriented to room, TV, BR and call light. Needs assessed and attended to. Call light within reach.
--- NOTE | 2022-09-11 19:07 | NUR ---
Transported pt to Med-Surg, Rm 310. Received by Karen LEON.
--- NOTE | 2022-09-11 19:21 | NUR ---
Gave report to Kriss LEON.
--- NOTE | 2022-09-11 19:23 | NUR ---
IV NS 1L completed at 1915.
[2022-09-11 20:00] VITALS: BP 86/49
[2022-09-11] MEDS ORDERED: PIPERACILLIN SODIUM/TAZOBACTAM 4.5 G in IV DEXTROSE 5% 50 ML IV SCH (20:00)
[2022-09-11] MEDS: MIDODRINE HCL 5 MG TABLET PO SCH (21:00)
--- NOTE | 2022-09-11 21:00 | NUR ---
Midodrine 10mg not given, patient had it from ER 3 hrs ago.
[2022-09-11] MEDS: PANTOPRAZOLE SODIUM 40 MG VIAL IV SCH (21:15)
--- NOTE | 2022-09-11 21:44 | NUR ---
Rechecked BP 72/40, patient asymptomatic, placed on t-hi position. Dr. Ramos made aware with order to recheck BP manually, obtained same results and relayed to .
--- NOTE | 2022-09-11 22:20 | NUR ---
Received order from Dr. Ramos to give NS 500ml bolus noted and carried out.
[2022-09-11] MEDS ORDERED: IV NORMAL SALINE 500 ML IV ONE (22:30)
[2022-09-12 00:10] VITALS: BP 81/42
[2022-09-12] MEDS: PIPERACILLIN SODIUM/TAZOBACTAM 3.375 G in IV DEXTROSE 5% 100 ML IV SCH ×3 (02:20→17:25)
[2022-09-12 04:00] VITALS: BP 84/44
[2022-09-12] MEDS: IV NS 1000 ML 1,000 ML IV PRN (06:49)
[2022-09-12 07:11] LABS: CREATININE 2.5 mg/dL (0.6-1.3); MAGNESIUM 1.9 mg/dL (1.8-2.4); PHOSPHOROUS 4.3 mg/dL (2.5-4.9); POTASSIUM 4.3 mmol/L (3.5-5.1)
[2022-09-12 07:39] LABS: *BILIRUBIN,URIN NEGATIVE (NEGATIVE); *BLOOD, URINE 1+ (NEGATIVE); *CLARITY,URINE CLEAR (CLEAR); *COLOR,URINE YELLOW (YELLOW); *KETONES,URINE NEGATIVE (NEGATIVE); *UROBILINOGEN,URINE 0.2 E.U./dl (NORMAL); LEUKOCYTE ESTERASE ,URINE NEGATIVE (NEGATIVE); NITRITE, URINE NEGATIVE (NEGATIVE); PH,URINE 5.5 (5.0-8.0); UGLUCOSE NEGATIVE (NEGATIVE)
[2022-09-12 07:42] LABS: *CREATININE,URINE 168.9 mg/dL (30-125); *URINE TOTAL PROTEIN RANDOM 50.2 mg/dL (<150/24HR)
[2022-09-12 08:43] LABS: HEMATOCRIT 22.2 % (36.7-47.1); MEAN CORPUSCULAR HEMOGLOBIN 23.1 uug (23.8-33.4); MEAN CORPUSCULAR VOLUME 72.4 fL (73.0-96.2)
[2022-09-12] MEDS: PANTOPRAZOLE SODIUM 40 MG VIAL IV SCH (09:12)
[2022-09-12] MEDS: MIDODRINE HCL 5 MG TABLET PO SCH ×2 (09:17→20:35)
[2022-09-12 10:35] LABS: PLATELET COUNT (AUTO) 16 K/uL (152-348)
[2022-09-12 11:01] VITALS: BP 119/53
--- NOTE | 2022-09-12 12:14 | NUR ---
Dr. Ramos made aware of H&H lab levels. No new orders to be followed at this time. Continue to monitor as per stated.
[2022-09-12 12:25] LABS: BACTERIA,URINE FEW /HPF (NONE SEEN); RBC,URINE 0-3 /HPF (0-3); SQUAMOUS EPITHELIAL CELL,UR NONE SEEN /HPF (NONE SEEN); WBC,URINE NONE SEEN /HPF (0-3)
[2022-09-12 13:13] LABS: BAND % (MANUAL) 8 % (0-10); LYMPHOCYTES % (MANUAL) 14 % (20-40)
[2022-09-12 13:14] LABS: EOSINOPHILS % (MANUAL) 2 % (0-8); MONOCYTES % (MANUAL) 5 % (2-10)
[2022-09-12 13:15] LABS: NEUTROPHILS % (MANUAL) 71 % (42-75)
--- NOTE | 2022-09-12 13:45 | NUR ---
IV LR 1L completed at 1330.
[2022-09-12 15:17] VITALS: BP 93/54
--- NOTE | 2022-09-12 19:30 | NUR ---
Patient had BMx1 during shift. No distress or c/o pain, Safety and comfort maintained.
[2022-09-12 20:00] VITALS: BP 99/56
[2022-09-13] VITALS (11 sets, daily range): BP systolic 87–105; BP diastolic 40–59
--- NOTE | 2022-09-13 02:14 | NUR ---
Transfusion started, patient in bed awake alert and verbally conversant, in no acute distress.
--- NOTE | 2022-09-13 02:29 | NUR ---
No adverse reaction noted, no rashes, denies chest pain, no SOB, no chills.
--- NOTE | 2022-09-13 05:19 | NUR ---
Blood transfusion completed, no noted adverse reaction.
[2022-09-13] MEDS: PIPERACILLIN SODIUM/TAZOBACTAM 3.375 G in IV DEXTROSE 5% 100 ML IV SCH ×2 (05:30→14:14)
[2022-09-13 07:12] LABS: HEMATOCRIT 26.1 % (36.7-47.1); MEAN CORPUSCULAR VOLUME 74.5 fL (73.0-96.2)
[2022-09-13 07:16] LABS: MEAN CORPUSCULAR HEMOGLOBIN 23.5 uug (23.8-33.4)
[2022-09-13 07:30] LABS: BILIRUBIN,TOTAL 1.8 mg/dL (0.2-1.0); CREATININE 2.2 mg/dL (0.6-1.3); MAGNESIUM 2.1 mg/dL (1.8-2.4); PHOSPHOROUS 4.9 mg/dL (2.5-4.9); POTASSIUM 4.1 mmol/L (3.5-5.1); TOTAL PROTEIN, SERUM 4.9 g/dL (6.4-8.2)
[2022-09-13 08:50] LABS: PLATELET COUNT (AUTO) 19 K/uL (152-348)
[2022-09-13] MEDS: MIDODRINE HCL 5 MG TABLET PO SCH (09:47)
[2022-09-13] MEDS: PANTOPRAZOLE SODIUM 40 MG VIAL IV SCH (09:48)
[2022-09-13] MEDS: IV NS 1000 ML 1,000 ML IV PRN (09:48)
[2022-09-13] MEDS ORDERED: METR500T PO (12:25)
[2022-09-13] MEDS ORDERED: LEVO500T90 PO (12:25)
--- NOTE | 2022-09-13 16:45 | NUR ---
RECEIVED PATIENT FROM MICHAEL DUKE RN. PATIENT IS ALERT AND ORIENTED X4 AND ABLE TO SPEAK BENGALI. PATIENT SPEAKS MAINLY LATVIAN. PATIENT VOIDS ADEQUATELY VIA TOILET. GAIT STEADY. PATIENT TOLERATES PO AND IV MEDICATIONS AND DIET WELL. PATIENT CONTINUES TO BE ON CLEAR LIQUID DIET. PATIENT DENIES PAIN. NO ACUTE DISTRESS NOTED. FALL PRECAUTIONS OBSERVED; BED IN LOWEST POSITION AND BED ALARM ON NEED. HOURLY ROUNDING COMPLETED. ALL NEEDS MET AT THIS TIME. MD DISCHARGED PATIENT. PATIENT AGREEABLE TO DISCHARGE. BELONGINGS LIST SIGNED. DISCHARGE EDUCATION PROVIDED. PATIENT VERBALIZED UNDERSTANDING. PATIENT SIGNED DISCHARGE DOCUMENTATION. RN REMOVED IV CATHETER. CATHETER TIP INTACT. PATIENT DISCHARGE IN STABLE CONDITION TO AND NEWPHEW.
[2022-09-13] MEDS ORDERED: PROTEIN SUPPLEMENT (PROSTAT) 30 ML LIQUID PO SCH (17:00)
[2022-09-14 12:07] LABS: ALBUMIN 2.2 g/dL (2.9-4.4); ALPHA-1-GLOBULIN 0.2 g/dL (0.0-0.4); ALPHA-2-GLOBULIN 0.4 g/dL (0.4-1.0); BETA GLOBULIN 0.7 g/dL (0.7-1.3); GAMMA GLOBULIN 0.9 g/dL (0.4-1.8); GLOBULIN, TOTAL 2.3 g/dL (2.2-3.9); M-SPIKE Not Observed g/dL (Not Observed)
== END 2022-09-13 16:45 | disposition home or self-care (01) | DRG 720 ==
LOC: ER 11:41 → MEDSURG3 18:48 → TELE3 22:00
PROVIDERS: ADMIT Internal Medicine; ATTEND Internal Medicine
PROC: 30233N1 Transfusion of Nonautologous Red Blood Cells into Peripheral Vein, Percutaneous Approach (ICD-10-PCS; principal; 2022-09-13)
DX: A41.9 Sepsis, unspecified organism (principal); N17.0 Acute kidney failure with tubular necrosis; E87.20 Acidosis, unspecified; D69.6 Thrombocytopenia, unspecified; D63.1 Anemia in chronic kidney disease; I85.10 Secondary esophageal varices without bleeding; K76.6 Portal hypertension; K62.89 Other specified diseases of anus and rectum; K80.20 Calculus of gallbladder without cholecystitis without obstruction; N32.1 Vesicointestinal fistula; N30.00 Acute cystitis without hematuria; N18.9 Chronic kidney disease, unspecified; K70.30 Alcoholic cirrhosis of liver without ascites; F10.20 Alcohol dependence, uncomplicated; A04.9 Bacterial intestinal infection, unspecified
CPT/HCPCS: 36415; 36600; 70030-TC; 71045; 82803; 83605; 83735; 83970; 84100; 84155; 84156; 84165; 84300; 85025; 85730; 86850; 86900; 86901; 86920; 87040; 87400; 93005; A9150; C9113; G0378; J2354; J2543; J3370; J7040; J7120; P9016; Q9967